=== PATIENT | female | born 1980 | race African-American/Black ===

== ENCOUNTER 2018-05-08 22:52 | Emergency (ER) | payer OTHER ==
[2018-05-09 03:36] VITALS: BP 113/68
== END 2018-05-09 03:37 | disposition short-term general hospital (02) ==
LOC: ED 22:52
DX: S20.212A Contusion of left front wall of thorax, initial encounter (principal); S93.401A Sprain of unspecified ligament of right ankle, initial encounter; S90.812A Abrasion, left foot, initial encounter; R51 Headache; M54.2 Cervicalgia; V43.52XA Car driver injured in collision with other type car in traffic accident, initial encounter; W22.10XA Striking against or struck by unspecified automobile airbag, initial encounter; Y93.I9 Activity, other involving external motion; Y92.413 State road as the place of occurrence of the external cause; Y99.8 Other external cause status
CPT/HCPCS: 90715; J1885